=== PATIENT | female | born 1980 | race Two or more races ===

== ENCOUNTER 2018-08-15 01:42 | Day surgery (SDC) | payer MEDICAID ==
[~2018-08-15] VITALS: Ht 170.2 cm; Wt 63.5 kg
[2018-08-15 02:20] LABS: Basophils # (auto) 0.1 uL; Basophils % (auto) 1.1 % (0.0-2.0); Eosinophils # (auto) 0.2 uL; Eosinophils % (auto) 2.1 % (0.0-7.0); Hemoglobin 13.2 g/dL (12.2-16.2); Lymphocytes # (auto) 2.7 uL; Lymphocytes % (auto) 30.6 % (10.0-50.0); Mean Corpuscular Hemoglobin 32.3 pg (28.0-32.0); Mean Corpuscular Hgb Conc. 33.8 g/dL (32.0-36.0); Mean Corpuscular Volume 95.7 fL (80.0-100.0); Monocytes # (auto) 0.6 uL; Monocytes % (auto) 6.9 % (0.0-12.0); Neutrophils # (auto) 5.2 uL; Neutrophils % (auto) 59.3 % (37.0-80.0); Nucleated Red Blood Cells % 0.1 %; Platelet Count (auto) 369 10^3/uL (140-450); Red Blood Cells 4.08 10^6/uL (4.0-5.20); Red Cell Distribution Width 12.4 % (11.8-14.3); White Blood Cell 8.8 10^3/uL (4.4-10.8)
[2018-08-15 02:35] LABS: INR 0.95 (0.9-1.15); Partial Thromboplastin Time 24.7 sec (23.78-33.04); Prothrombin Time 10.2 sec (9.27-12.13)
[2018-08-15 02:38] LABS: Urine Bacteria NONE SEEN /hpf (None Seen); Urine Blood Negative /uL (Negative); Urine Mucus FEW (None Seen); Urine Specific Gravity 1.023 (1.001-1.035); Urine WBC 1 /hpf (0 - 5)
[2018-08-15 02:40] LABS: Albumin 3.6 g/dL (3.4-5.0); Calcium 8.1 mg/dL (8.5-10.1); Potassium 4.3 mmol/L (3.5-5.1)
[2018-08-15 02:43] LABS: BUN/Creatinine Ratio 18.6
[2018-08-15 02:44] LABS: Bilirubin, Total 0.3 mg/dL (0.2-1.0); Total Protein 7.4 g/dL (6.4-8.2)
[2018-08-15] MEDS ORDERED: LABETALOL HCL 5 MG/ML 4ML SYRINGE IV PRN (11:00)
[2018-08-15] MEDS ORDERED: ONDANSETRON HCL 4 MG/2 ML VIAL IV ONE (11:00)
[2018-08-15] MEDS ORDERED: ePHEDrine SULFATE 50 MG/ML AMP IV PRN (11:00)
[2018-08-15] MEDS ORDERED: KETOROLAC TROMETH 30 MG/ML 1ML VIAL IV ONE (11:00)
[2018-08-15] MEDS ORDERED: HYDROmorphone HCL 2 MG/ML VL IV PRN (11:00)
[2018-08-15] MEDS ORDERED: MORPHINE SULFATE 4 MG/ML SYR/VIAL IV PRN (11:00)
[2018-08-15] MEDS ORDERED: ceFAZolin 1GM/50ML 50 ML IV ONE (11:47)
[2018-08-15] MEDS ORDERED: MORPHINE SULFATE 4 MG/ML SYR/VIAL IV ONE (12:00)
[2018-08-15] MEDS ORDERED: fentaNYL CITRATE 100 MCG/2 ML VL ONE (12:01)
[2018-08-15] MEDS ORDERED: MEPERIDINE HCL (50 MG/ML) 1 ML VIAL ONE (12:01)
[2018-08-15] MEDS ORDERED: MIDAZOLAM HCL 1MG/1ML-2 ML VIAL ONE (12:01)
[2018-08-15] MEDS ORDERED: DEXAMETHASONE SOD PHOS 10MG/1ML VIAL INJ ONE (12:12)
[2018-08-15] MEDS ORDERED: PROPOFOL 10 MG/ML 20 ML IV ONE (12:12)
[2018-08-15] MEDS ORDERED: ONDANSETRON HCL 4 MG/2 ML VIAL ONE (12:12)
[2018-08-15] MEDS ORDERED: LACTATED RINGER'S 1,000 ML IV SCH (13:59)
[2018-08-15] MEDS ORDERED: ONDANSETRON HCL 4 MG/2 ML VIAL IV PRN (14:00)
[2018-08-15 14:44] VITALS: BP 130/75
== END 2018-08-15 14:58 | disposition home or self-care (01) ==
LOC: ER 01:42 → SUR 01:43 → ER 10:53 → SUR 14:58
PROVIDERS: ATTEND Specialist
DX: D28.2 Benign neoplasm of uterine tubes and ligaments (principal); K66.0 Peritoneal adhesions (postprocedural) (postinfection); D64.9 Anemia, unspecified; Z98.82 Breast implant status; Z98.51 Tubal ligation status; Z98.890 Other specified postprocedural states
CPT/HCPCS: 58661; J1170; J2175; J3010; 36415; 76801; 76817; 80053; 81001; 84702; 85025; 85610; 85730; 86850; 86900; 86901; J0690; J1100; J2250; J2405; J2704

== ENCOUNTER → 2018-08-29 | Outpatient (CLI) | payer MEDICAID | END | disposition home or self-care (01) | LOC: LAB 09:15 | PROVIDERS: ATTEND Specialist | DX: N91.2 Amenorrhea, unspecified (principal) | CPT/HCPCS: 36415; 84702 ==